=== PATIENT | female | born 1980 | race African-American/Black ===

== ENCOUNTER → 2016-08-17 | Outpatient (CLI) | payer OTHER | LOC: OD 12:10 | PROVIDERS: ATTEND Podiatrist Foot & Ankle Surgery | DX: Z98.890 Other specified postprocedural states (principal) ==

== ENCOUNTER 2016-11-22 18:55 | Emergency (ER) | payer OTHER, MEDICAID ==
[2016-11-22] MEDS ORDERED: IBUPROFEN 800 MG TABLET PO ONE (20:11)
[2016-11-22] MEDS ORDERED: CYCLOBENZAPRINE HCL 10 MG TABLET PO ONE (20:11)
[2016-11-22 20:13] VITALS: BP 120/70
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
== END 2016-11-22 22:35 | disposition home or self-care (01) ==
LOC: ER 18:55
DX: M54.5 Low back pain (principal); M79.631 Pain in right forearm; M54.2 Cervicalgia; V49.40XA Driver injured in collision with unspecified motor vehicles in traffic accident, initial encounter
CPT/HCPCS: 72050; 72100; 72200; 99283

== ENCOUNTER 2019-04-10 14:43 | Outpatient (CLI) | payer MEDICAID ==
--- NOTE | 2019-04-10 15:31 | Non Stress Test Report ---
Non Stress Test Datetime Report Generated by CPN: 04/10/2019 15:31 INDICATION Indication for Study (NST) Other: AMA VITAL SIGNS Temperature - NST: 98.4 MONITORING Monitor Explained: Monitor Explained; Test Explained; Patient Verbalized Understanding; Other Time on Monitor: 04/10/2019 14:49 Time off Monitor: 04/10/2019 15:24 NST Duration: 35 NST INTERVENTIONS NST Interventions: None Physician Notified NST: C Damon CNM BABY A: [id number] BABY A Movement : Present Contraction Frequency : x1, irritibility FHR Baseline : 145 Accelerations : 15X15 Decelerations : None Variability : Moderate 6-25bpm NST Review: Meets Criteria for Reactive NST NST Review and Verified By : [place] RNC NST Results: Reactive NST REPORT Report Trigger: Send Report
== END 2019-04-10 15:41 | disposition home or self-care (01) ==
LOC: LC 14:43
PROVIDERS: ATTEND Obstetrics & Gynecology
PROC: 4A1HXCZ Monitoring of Products of Conception, Cardiac Rate, External Approach (ICD-10-PCS; principal; 2019-04-10)
DX: O09.523 Supervision of elderly multigravida, third trimester (principal); Z3A.37 37 weeks gestation of pregnancy
CPT/HCPCS: 59025

== ENCOUNTER 2019-05-03 12:53 | Outpatient (CLI) | payer MEDICAID ==
--- NOTE | 2019-05-03 13:53 | Non Stress Test Report ---
Non Stress Test Datetime Report Generated by CPN: 05/03/2019 13:53 DEMOGRAPHIC EGA NST: 40.3 INDICATION Indication for Study: Other Indication for Study (NST) Other: repeat NST VITAL SIGNS Temperature - NST: 98.6 Pulse - NST: 71 RESP - NST: 15 NBPSYS NST: 119 NBPDIA NST: 51 MONITORING Monitor Explained: Monitor Explained; Test Explained; Patient Verbalized Understanding Time on Monitor: 05/03/2019 13:05 Time off Monitor: 05/03/2019 13:42 NST Duration: 37 NST INTERVENTIONS NST Interventions: PO Hydration Physician Notified NST: Dr Henry BABY A: [id number] BABY A Movement : Present Contraction Frequency : irregular FHR Baseline : 140 Accelerations : 15X15 Decelerations : None Variability : Moderate 6-25bpm NST Review: Meets Criteria for Reactive NST NST Review and Verified By : R. [place]he[place], RN NST Results: Reactive NST COMMENTS NST Comments: MD on unit reviewing strip NST REPORT Report Trigger: Send Report
== END 2019-05-03 13:47 | disposition home or self-care (01) ==
LOC: LC 12:53
PROVIDERS: ATTEND Student in an Organized Health Care Education/Training Program
PROC: 4A1HXCZ Monitoring of Products of Conception, Cardiac Rate, External Approach (ICD-10-PCS; principal; 2019-05-03)
DX: O48.0 Post-term pregnancy (principal); Z3A.40 40 weeks gestation of pregnancy
CPT/HCPCS: 59025

== ENCOUNTER 2019-05-06 18:25 | Inpatient (IN) | payer MEDICAID ==
[2019-05-06 19:17] LABS: ABSOLUTE LYMPHOCYTES (AUTO) 1.4 10^3/uL (0.5-4.7); ABSOLUTE MONOCYTES (AUTO) 0.5 10^3/uL (0.1-1.4); ABSOLUTE NEUT (AUTO) 5.1 10^3/uL (1.7-8.2); BASOPHILS % (AUTO) 0.2 % (0-2); EOSINOPHILS % (AUTO) 0.4 % (0-6); HEMATOCRIT 33.5 % (36.0-47.0); HEMOGLOBIN 11.2 g/dL (12.0-15.5); LYMPHOCYTES % (AUTO) 19.7 % (13-45); MEAN CORPUSCULAR HEMOGLOBIN 30.1 pg (27.0-33.4); MEAN CORPUSCULAR HGB CONC 33.4 g/dL (32.0-36.0); MEAN CORPUSCULAR VOLUME 90 fl (80-97); MONOCYTES % (AUTO) 7.3 % (3-13); PLATELET COUNT 241 10^3/uL (150-450); RED BLOOD COUNT 3.72 10^6/uL (3.72-5.28); RED CELL DISTRIBUTION WIDTH 14.1 % (11.5-14.0); SEGMENTED NEUTROPHILS % (AUTO) 72.4 % (42-78); TOTAL CELLS COUNTED % (AUTO) 100 %; WHITE BLOOD COUNT 7.1 10^3/uL (4.0-10.5)
[2019-05-06] MEDS ORDERED: OXYTOCIN/NORMAL SALINE 20 UNIT/1,000 ML RTUINJ IV PRN (20:01)
[2019-05-06] MEDS ORDERED: MAG HYDROX/AL HYDROX/SIMETH SUSP 30 ML UDCUP PO PRN (20:01)
[2019-05-06] MEDS ORDERED: ZOLPIDEM TARTRATE 5 MG TABLET PO PRN (20:01)
[2019-05-06] MEDS ORDERED: RINGERS SOLUTION,LACTATED 1,000 ML IV PRN (20:01)
[2019-05-06] MEDS ORDERED: ACETAMINOPHEN 325 MG TABLET PO PRN (20:01)
[2019-05-06] MEDS ORDERED: RINGERS SOLUTION,LACTATED 300 ML IV ONE (20:01)
[2019-05-06] MEDS ORDERED: DINOPROSTONE 10 MG VAGINAL INSERT.SR PV ONE (20:01)
[2019-05-06] MEDS ORDERED: DINOPROSTONE 10 MG VAGINAL INSERT.SR ONE (20:03)
--- NOTE | 2019-05-06 20:04 | Admission Physical ---
Datetime Report Generated by CPN: 05/06/2019 20:04 CURRENT ADMISSION Chief Complaint: Scheduled Induction of Labor Indication for Induction- Other: AMA Admit Impression : Term, Intrauterine ; Induction of Labor Admit Plan: Admit to Unit; Initiate Labor Induction Protocol ALLERGIES Medication Allergies: No Medication Allergies: No Known Allergies (05/06/2019) OBSTETRICAL HISTORY EDC: 04/30/2019 00:00 : 4 Para: 3 Term: 3 : 0 SAB: 0 IAB: 0 Ectopic: 0 Livin Cesareans: 0 VBACs: 0 Multiple Births: 0 Gestational Diabetes: No Rh Sensitization: No Incompetent Cervix: No JUAN: No Infertility: No ART Treatment: No Uterine Anomaly: No IUGR: No Hx Previous C/S: No Macrosomia: No Hx Loss/Stillborn: No PIH: No Hx : No Placenta Previa/Abruption: No Depression/PP Depression: No PTL/PROM: No Post Hemorrhage: No Current Procedures: Ultrasound Obstetrical History Comments: G1- 1998 G2- 2000 G3- 2003 G4- current AMA SEE RECORDS Alcohol: No Marijuana : No Cocaine: No Other Illicit Drugs: No Cigarettes: Former Smoker. [id number] MEDICAL HISTORY Diabetes: No Blood Transfusion: No Pulmonary Disease (Asthma, TB): No Breast Disease: No Hypertension: No [employer] Surgery: No Heart Disease: No Hosp/Surgery: Yes Autoimmune Disorder: No Anesthetic Complications: No Kidney Disease: No Abnormal Pap Smear: No Neuro/Epilepsy: No Psychiatric Disorders: No Other Medical Diseases: No Hepatitis/Liver Disease: No Significant Family History: No Varicosities/Phlebitis: No Trauma/Violence : No Thyroid Dysfunction: No Medical History Comments: childbirth, bunion removal, INFECTIOUS HISTORY Gonorrhea: No Genital Herpes: No Chlamydia: No Tuberculosis: No Syphilis: No Hepatitis: No HIV/AIDS Exposure: No Rash or Viral Illness: No HPV: No PHYSICAL EXAM General: Normal HEENT: Normal Neurologic: Normal Thyroid: Normal Heart: Normal Lungs: Normal Breast: Deferred Back: Normal Abdomen: Normal Genitourinary Exam: Normal Extremities: Normal DTRs: Normal Pelvic Type: Adequate Vital Signs: Reviewed VAGINAL EXAM Dilatation: 1 Effacement: 50 MEMBRANES Pooling: Negative Membranes: Intact FETUS A EGA: 40.6 Monitoring: External US FHR- Baseline: 140 Variability: Moderate 6-25bpm Decelerations: None FHR Category: Category I Presentation: Vertex Admit Comment: Admit for induction PLANS FOR LABOR AND DELIVERY Labor and Delivery: None Pain Management: Epidural Feeding Preference: Both Benefit of Breast Feed Discussed: Yes Circumcision: No INFORMED CONSENT Signature: with User ID: [email or web address]
[2019-05-06] MEDS ORDERED: ZOLPIDEM TARTRATE 5 MG TABLET ONE (20:54)
[2019-05-06] MEDS ORDERED: ZOLPIDEM TARTRATE 5 MG TABLET PO ONE (21:00)
[2019-05-06 21:08] LABS: APPEARANCE,URINE CLEAR; BILIRUBIN,URINE NEGATIVE (NEGATIVE); COLOR,URINE YELLOW; GLUCOSE, URINE NEGATIVE (NEGATIVE); KETONES,URINE NEGATIVE (NEGATIVE); LEUKOCYTE ESTERASE,URINE NEGATIVE (NEGATIVE); NITRITE,URINE NEGATIVE (NEGATIVE); PROTEIN,URINE NEGATIVE (NEGATIVE); URINE SPECIFIC GRAVITY 1.009; UROBILINOGEN,URINE NEGATIVE mg/dL (<2.0)
[2019-05-06 21:23] LABS: URINE AMPHETAMINES SCREEN NEGATIVE; URINE BARBITURATES SCREEN NEGATIVE; URINE BENZODIAZEPINES SCREEN NEGATIVE; URINE COCAINE SCREEN NEGATIVE; URINE MARIJUANA (THC) SCREEN NEGATIVE; URINE METHADONE SCREEN NEGATIVE; URINE PHENCYCLIDINE SCREEN NEGATIVE
[2019-05-07] MEDS ORDERED: MISOPROSTOL 0.1 MG TABLET ONE (09:10)
[2019-05-07] MEDS ORDERED: MISOPROSTOL 0.1 MG TABLET PV SCH (09:15)
[2019-05-07] MEDS ORDERED: MISOPROSTOL 0.1 MG TABLET PO SCH (09:15)
[2019-05-07] MEDS ORDERED: EPHEDRINE SULFATE INJ 50 MG/1 ML AMPULE ONE (13:20)
[2019-05-07] MEDS ORDERED: BUPIVACAINE HCL 0.25 % INJ/PF (2.5 MG/1 ML) 30 ML VIAL ONE (13:21)
[2019-05-07] MEDS ORDERED: LIDOCAINE 1% INJ-PF (10 MG/ML) 30 ML SDV ONE (13:21)
[2019-05-07] MEDS ORDERED: MISOPROSTOL 0.2 MG TABLET ONE (13:21)
[2019-05-07] MEDS ORDERED: FENTANYL/BUPIVACAINE/NS/PF 300 MCG/150 ML RTUINJ EPI ONE (13:21)
[2019-05-07] MEDS ORDERED: OXYTOCIN/NORMAL SALINE 20 UNIT/1,000 ML RTUINJ ONE (13:22)
[2019-05-07] MEDS ORDERED: BENZOCAINE/MENTHOL AEROSOL SPRAY 56 ML TOP PRN (15:01)
[2019-05-07] MEDS ORDERED: ACETAMINOPHEN WITH CODEINE #3 TABLET PO PRN (15:01)
[2019-05-07] MEDS ORDERED: DIBUCAINE 1% OINTMENT 56 GM TP PRN (15:01)
[2019-05-07] MEDS ORDERED: PSEUDOEPHEDRINE HCL 30 MG TABLET PO PRN (15:01)
[2019-05-07] MEDS ORDERED: MAGNESIUM HYDROXIDE SUSP 30 ML UDCUP PO PRN (15:01)
[2019-05-07] MEDS ORDERED: ZOLPIDEM TARTRATE 5 MG TABLET PO PRN (15:01)
[2019-05-07] MEDS ORDERED: PROMETHAZINE HCL 25 MG TABLET PO PRN (15:01)
[2019-05-07] MEDS ORDERED: PROMETHAZINE HCL INJ 25 MG/1 ML VIAL IV PRN (15:01)
[2019-05-07] MEDS ORDERED: ACETAMINOPHEN 650 MG SUPP.RECT PR PRN (15:01)
[2019-05-07] MEDS ORDERED: OXYTOCIN/NORMAL SALINE 20 UNIT/1,000 ML RTUINJ IV PRN (15:01)
[2019-05-07] MEDS ORDERED: GLYCERIN/WITCH HAZEL LEAF 1 EACH MED..WIPE TP PRN (15:01)
[2019-05-07] MEDS ORDERED: MEASLES,MUMPS&RUBELLA VACC/PF 0.5 ML VIAL SUBCUT PRN (15:01)
[2019-05-07] MEDS ORDERED: DIPHENHYDRAMINE HCL 25 MG CAPSULE PO PRN (15:01)
[2019-05-07] MEDS ORDERED: PROMETHAZINE HCL 25 MG SUPP.RECT PR PRN (15:01)
[2019-05-07] MEDS ORDERED: NA PHOS,M-B/NA PHOS,DI-BA (ADULT) 133 ML ENEMA PR PRN (15:01)
[2019-05-07] MEDS ORDERED: DIPH/PERTUSS(ACELL)/TETANUS VAC/PF 0.5 ML SYR (>=10YO) IM PRN (15:01)
--- NOTE | 2019-05-07 15:51 | Delivery Summary ---
Del Sum A-C Datetime Report Generated by CPN: 05/07/2019 15:50 DELIVERY PERSONNEL DELIVERY PERSONNEL: [id number] Delivery Doctor:: Vanessa Capone CNM Labor and Delivery Nurse:: Mae Estrada RNsales service assistant Nurse:: Nani Green RN Nursery Nurse:: Cheyenne Mcghee LPN Validation Leader/INVASIVE PHYSICIAN: Desiree Mistry, ST MATERNAL INFORMATION Delivery Anesthesia: Epidural Medications After Delivery: Pitocin Bolus-Please Comment; Pitocin Drip 20 Units/1000ml NSS Delivery QBL: 200 Maternal Complications: Other Complication Details: AMA Provider Comments: pt had a prolonged variable after epidural, repositioned, knee chest, LL, O 2 started, dilated to 6cm then complete, start pushing, HR back up to basline, viable male from JULIA to OA position over intact perineum, baby placed on mothers abdomen, cord clamped and cut after 2 minutes, baby crying vigorously, spont delivery of grossly normal intact placenta, 3 VS Baby and mom remain in recovery in stable condition LABOR SUMMARY EDC: 04/30/2019 00:00 No. Babies in Womb: 1 Attempted: No Labor Anesthesia: Epidural LABOR INFORMATION Reason for Induction: Post Dates Reason for Induction- Other: AMA Onset of Labor: 05/07/2019 11:48 Complete Dilatation: 05/07/2019 14:20 Cervical Ripening Agents: Cervidil Oxytocin: N/A Group B Beta Strep: Negative Antibiotics # of Doses: 0 Antibiotics Time of Last Dose: n/a Steroids Given: None Reason Steroids Not Administered: Not Applicable MEMBRANES Membranes Rupture Method: Spontaneous Rupture of Membranes: 05/07/2019 09:42 Length of Rupture (hr): 5.03 Amniotic Fluid Color: Clear Amniotic Fluid Amount: Small Amniotic Fluid Odor: Normal STAGES OF LABOR Stage 1 hr: 2 Stage 1 min: 32 Stage 2 hr: 0 Stage 2 min: 24 Stage 3 hr: 0 Stage 3 min: 5 Total Time in Labor hr: 3 Total Time in Labor min: 1 VAGINAL DELIVERY Episiotomy: None Laceration #1: None Laceration Extension #1: N/A Laceration Repair: Not Applicable Sponge Count Correct: N/A Sharps Count Correct: N/A BABY A INFORMATION Delivery Date/Time: 05/07/2019 14:44 Method of Delivery: Vaginal Born in Route : No : N/A Forceps: N/A Vacuum Extraction: N/A Shoulder Dystocia : No PRESENTATION/POSITION BABY A Presentation: Cephalic Cephalic Presentation: Vertex Vertex Position: Right Occipital Anterior Breech Presentation: N/A PLACENTA INFORMATION BABY A Placenta Delivery Time : 05/07/2019 14:49 Placenta Method of Delivery: Spontaneous Placenta Status: Delivered SCORES BABY A Heart Rate 1 min: >100 bpm Resp Effort 1 min: Good Cry Reflex Irritability 1 min: Cough or Sneeze or Pulls Away Muscle Tone 1 min: Active Motion Color 1 min: Blue/Pale Resuscitation Effort 1 min: Tactile Stimulation SCORE 1 MIN: 8 Heart Rate 5 min: >100 bpm Resp Effort 5 min: Good Cry Reflex Irritability 5 min: Cough or Sneeze or Pulls Away Muscle Tone 5 min: Active Motion Color 5 min: Body [place], Extremities Blue Resuscitation Effort 5 min: Tactile Stimulation SCORE 5 MIN: 9 INFORMATION BABY A Gestational Age at Delivery: 41.0 Gestational Status: Late Term- 41- 41.6 Weeks Infant Outcome : Liveborn Infant Condition : Stable Infant Sex: Male IDENTIFICATION BABY A Infant Verification Date/Time: 05/07/2019 15:00 ID Band Number: [id number] Mother's Name Verified: Yes Infant RN Verifying : Rafiq Estrada, RN/ A. Lilocarlos, RN WEIGHT/LENGTH BABY A Infant Birthweight (gm): 2982 Weight (lb): 6 Weight (oz): 9 Infant Length (in): 19.50 Length (cm): 49.53 CORD INFORMATION BABY A No. Cord Vessels: 3 Nuchal Cord : Around Neck x1, Loose Cord Blood Taken: Yes-For Eval (Mom's Blood Type - or O+) Infant Suction: Mouth; Nose ASSESSMENT BABY A Complications: Other Complications- Other: TERMINAL MECONIUM Physical Findings at Delivery: Within Normal Limits Infant Respirations: Appears Normal Skin to Skin: Yes Director Check/ALS Called : No Transferred To: Remains with Mother BABY B INFORMATION : N/A
[2019-05-07] MEDS: DOCUSATE SODIUM 100 MG CAPSULE PO SCH (18:24)
[2019-05-07] MEDS: FERROUS SULFATE 325 MG TABLET PO SCH (18:24)
[2019-05-07] MEDS: IBUPROFEN 800 MG TABLET PO SCH (21:32)
[2019-05-07] MEDS: FAMOTIDINE 20 MG TABLET PO SCH (21:32)
[2019-05-08] MEDS: IBUPROFEN 800 MG TABLET PO SCH ×3 (06:05→22:24)
[2019-05-08 08:53] LABS: HEMATOCRIT 32.9 % (36.0-47.0); MEAN CORPUSCULAR HEMOGLOBIN 30.3 pg (27.0-33.4); MEAN CORPUSCULAR HGB CONC 33.4 g/dL (32.0-36.0); MEAN CORPUSCULAR VOLUME 91 fl (80-97); PLATELET COUNT 225 10^3/uL (150-450); RED BLOOD COUNT 3.62 10^6/uL (3.72-5.28); RED CELL DISTRIBUTION WIDTH 14.2 % (11.5-14.0); WHITE BLOOD COUNT 8.8 10^3/uL (4.0-10.5)
[2019-05-08] MEDS: PRENATAL VITAMIN W DHA CAPSULE PO SCH (10:28)
[2019-05-08] MEDS: SENNOSIDES/DOCUSATE 8.6-50 MG 1 EACH TABLET PO SCH (10:28)
[2019-05-08] MEDS: DOCUSATE SODIUM 100 MG CAPSULE PO SCH ×2 (10:28→17:54)
[2019-05-08] MEDS: FERROUS SULFATE 325 MG TABLET PO SCH ×2 (10:28→17:54)
[2019-05-08] MEDS: FAMOTIDINE 20 MG TABLET PO SCH ×2 (10:32→22:24)
--- NOTE | 2019-05-08 10:57 | PDOC PROGRESS REPORT ---
Subjective-OB Progress Note for:: 05/08/19 Subjective: 38yo G4 now P4 s/p ppd1. Ambulating and voiding without difficulty. Reports pain well controlled with medication. Denies any concerns today Physical Exam (OB) Vital Signs: Temp Pulse Resp BP Pulse Ox 98 F 80 16 133/67 H 100 05/08/19 08:20 05/08/19 08:20 05/08/19 08:20 05/08/19 08:20 05/08/19 08:20 Intake & Output 05/07/19 05/08/19 05/09/19 06:59 06:59 06:59 Intake Total 1999 Balance 1999 Weight 73.9 kg - General General Appearance: Appears well In distress: None - PIH/Pre-Eclampsia Clonus: Negative Headache: Absent Epigastric Pain: No Visual Changes: No - Episiotomy/Laceration Site Condition: N/A - Lochia Lochia Amount: Scant < 10 ml Lochia Color: Rubra/Red - Abdomen Description: Soft Hernia Present: No Fundal Description: Firm, Midline Fundal Height: u/u - u/2 - Respiratory Respiratory Status: No respiratory distress - Extremities Upper extremity: Normal inspection Lower extremities: Normal inspection - Neurological Cognition: Normal Orientation: AAOx4 - Psychological Associated symptoms: Normal affect, Normal mood Objective-Diagnostic Laboratory: 05/08/19 08:00 05/08/19 08:00 WBC 8.8 RBC 3.62 L Hgb 11.0 L Hct 32.9 L MCV 91 MCH 30.3 MCHC 33.4 RDW 14.2 H Plt Count 225 Assessment and Plan(PN) - Assessment and Plan (1) AMA (advanced maternal age) multigravida 35+ Qualifiers: Trimester: third trimester Qualified Code(s): O09.523 - Supervision of elderly multigravida, third trimester Is this a current diagnosis for this admission?: Yes Plan: delivered (2) Delivery normal Is this a current diagnosis for this admission?: Yes Plan: Routine pp care (3) Encounter for induction of labor Is this a current diagnosis for this admission?: Yes Plan: delivered - Time Spent with Patient Time with patient: Less than 15 minutes Medications reviewed and adjusted accordingly: Yes - Disposition Anticipated Discharge: Home Within: within 24 hours
[2019-05-09] MEDS: IBUPROFEN 800 MG TABLET PO SCH (06:12)
[2019-05-09 08:07] VITALS: BP 132/75
[2019-05-09] MEDS: PRENATAL VITAMIN W DHA CAPSULE PO SCH (09:03)
[2019-05-09] MEDS: DOCUSATE SODIUM 100 MG CAPSULE PO SCH (09:03)
[2019-05-09] MEDS: FAMOTIDINE 20 MG TABLET PO SCH (09:03)
[2019-05-09] MEDS: FERROUS SULFATE 325 MG TABLET PO SCH (09:03)
[2019-05-09] MEDS: SENNOSIDES/DOCUSATE 8.6-50 MG 1 EACH TABLET PO SCH (09:03)
--- NOTE | 2019-05-09 09:05 | PDOC PROGRESS REPORT ---
Subjective-OB Progress Note for:: 05/09/19 Subjective: Doing well, excited about going home, bottle feeding, wilder alot of help at home, going thru a divorce Physical Exam (OB) Vital Signs: Temp Pulse Resp BP Pulse Ox 97.7 F 59 L 16 132/75 H 100 05/09/19 08:56 05/09/19 08:56 05/09/19 08:56 05/09/19 08:56 05/09/19 08:56 Intake & Output 05/08/19 05/09/19 05/10/19 06:59 06:59 06:59 Intake Total 1999 Balance 1999 - PIH/Pre-Eclampsia Clonus: Negative Headache: Absent Epigastric Pain: No Visual Changes: No - Lochia Lochia Amount: Scant < 10 ml Lochia Color: Rubra/Red - Abdomen Description: Soft Hernia Present: No Fundal Description: Firm, Midline Fundal Height: u/u - u/2 Objective-Diagnostic Laboratory: 05/08/19 08:00 Assessment and Plan(PN) - Assessment and Plan (1) Encounter for induction of labor Is this a current diagnosis for this admission?: Yes (2) AMA (advanced maternal age) multigravida 35+ Qualifiers: Trimester: third trimester Qualified Code(s): O09.523 - Supervision of elderly multigravida, third trimester Is this a current diagnosis for this admission?: Yes (3) Delivery normal Is this a current diagnosis for this admission?: Yes - Time Spent with Patient Time with patient: Less than 15 minutes Medications reviewed and adjusted accordingly: Yes - Disposition Anticipated Discharge: Home Within: within 24 hours
--- NOTE | 2019-05-09 09:10 | PDOC DISCHARGE SUMMARY ---
Impression - Admit/DC Date/PCP Admission Date/Primary Care Provider: 05/06/19 18:25 DOROTHY MACK CNM Discharge Date: 05/09/19 - Discharge Diagnosis (1) Encounter for induction of labor Is this a current diagnosis for this admission?: Yes (2) AMA (advanced maternal age) multigravida 35+ Is this a current diagnosis for this admission?: Yes (3) Delivery normal Is this a current diagnosis for this admission?: Yes - Additional Information Resuscitation Status: Full Code Discharge Diet: Regular Discharge Activity: Balance Activity w/Rest, No tub bath Referrals: [facility] [Provider Group] (Please call and schedule a 4 week follow up. ) Home Medications: Vit/Dha [ Multi + Dha Capsule] 1 cap PO DAILY 05/03/19 HPI Gestational Age: 41 Reason(s) for Admission: Induction of Labor Admission Note: post dates, AMA Procedures: NST, Ultrasound Procedure(s) Note: cervidil Intrapartum Procedure(s): Spontaneous Vaginal Delivery Hospital Course Hospital Course: routine Results Laboratory Results: WBC 8.8 10^3/uL (4.0-10.5) 05/08/19 08:00 RBC 3.62 10^6/uL (3.72-5.28) L 05/08/19 08:00 Hgb 11.0 g/dL (12.0-15.5) L 05/08/19 08:00 Hct 32.9 % (36.0-47.0) L 05/08/19 08:00 MCV 91 fl (80-97) 05/08/19 08:00 MCH 30.3 pg (27.0-33.4) 05/08/19 08:00 MCHC 33.4 g/dL (32.0-36.0) 05/08/19 08:00 RDW 14.2 % (11.5-14.0) H 05/08/19 08:00 Plt Count 225 10^3/uL (150-450) 05/08/19 08:00 Lymph % (Auto) 19.7 % (13-45) 05/06/19 19:04 Villalba % (Auto) 7.3 % (3-13) 05/06/19 19:04 Eos % (Auto) 0.4 % (0-6) 05/06/19 19:04 Baso % (Auto) 0.2 % (0-2) 05/06/19 19:04 Absolute Neuts (auto) 5.1 10^3/uL (1.7-8.2) 05/06/19 19:04 Absolute Lymphs (auto) 1.4 10^3/uL (0.5-4.7) 05/06/19 19:04 Absolute Monos (auto) 0.5 10^3/uL (0.1-1.4) 05/06/19 19:04 Absolute Eos (auto) 0.0 10^3/uL (0.0-0.6) 05/06/19 19:04 Absolute Basos (auto) 0.0 10^3/uL (0.0-0.2) 05/06/19 19:04 Seg Neutrophils % 72.4 % (42-78) 05/06/19 19:04 Urine Color YELLOW 05/06/19 18:32 Urine Appearance CLEAR 05/06/19 18:32 Urine pH 7.0 (5.0-9.0) 05/06/19 18:32 Ur Specific Stuart 1.009 05/06/19 18:32 Urine Protein NEGATIVE mg/dL (NEGATIVE) 05/06/19 18:32 Urine Glucose (UA) NEGATIVE mg/dL (NEGATIVE) 05/06/19 18:32 Urine Ketones NEGATIVE mg/dL (NEGATIVE) 05/06/19 18:32 Urine Blood NEGATIVE (NEGATIVE) 05/06/19 18:32 Urine Nitrite NEGATIVE (NEGATIVE) 05/06/19 18:32 Urine Bilirubin NEGATIVE (NEGATIVE) 05/06/19 18:32 Urine Urobilinogen NEGATIVE mg/dL (<2.0) 05/06/19 18:32 Ur Leukocyte Esterase NEGATIVE (NEGATIVE) 05/06/19 18:32 Urine Ascorbic Acid NEGATIVE (NEGATIVE) 05/06/19 18:32 Urine Opiates Screen NEGATIVE 05/06/19 18:32 Urine Methadone Screen NEGATIVE 05/06/19 18:32 Ur Barbiturates Screen NEGATIVE 05/06/19 18:32 Ur Phencyclidine Scrn NEGATIVE 05/06/19 18:32 Ur Amphetamines Screen NEGATIVE 05/06/19 18:32 U Benzodiazepines Scrn NEGATIVE 05/06/19 18:32 Urine Cocaine Screen NEGATIVE 05/06/19 18:32 U Marijuana (THC) Screen NEGATIVE 05/06/19 18:32 RPR NONREACTIVE (NONREACTIVE) 05/06/19 19:04 Blood Type O POSITIVE 05/06/19 19:04 Antibody Screen POSITIVE 05/06/19 19:04 Antibody Identification Anti-Orquidea 05/06/19 19:04 Antigen Identification Orquidea Antigen - NEGATIVE 05/06/19 19:04 Plan Health Concerns: routine Plan of Treatment: D/C home with baby Goals: routine PP Time Spent: Less than 30 Minutes
== END 2019-05-09 11:29 | disposition home or self-care (01) | DRG 807 ==
LOC: LR 18:25 → 2S 05-07 17:08
PROVIDERS: ADMIT Obstetrics & Gynecology; ATTEND Obstetrics & Gynecology
PROC: 10E0XZZ Delivery of Products of Conception, External Approach (ICD-10-PCS; principal; 2019-05-07)
PROC: 3E0234Z Introduction of Serum, Toxoid and Vaccine into Muscle, Percutaneous Approach (ICD-10-PCS; 2019-05-09)
DX: O48.0 Post-term pregnancy (principal); Z37.0 Single live birth; O69.81X0 Labor and delivery complicated by cord around neck, without compression, not applicable or unspecified; O77.0 Labor and delivery complicated by meconium in amniotic fluid; Z3A.40 40 weeks gestation of pregnancy; Z23 Encounter for immunization
CPT/HCPCS: 36415; 80307; 81005; 85025; 85027; 86592; 86850; 86870; 86900; 86901; 90715; 94760; J2590; J3010; J3490